=== PATIENT | female | born 1995 ===

== ENCOUNTER 2023-07-25 11:41 | Outpatient (CLI) | payer OTHER, SELFPAY ==
--- NOTE | ~2023-07-25 | US_ITS ---
EXAMINATION: US pelvic complete w TV DATE: 07/25/2023 12:09 INDICATION: Pelvic and perineal pain. Missing strings. Comparison:No prior studies for comparison. TECHNIQUE: Multiple transabdominal and endovaginal sonographic images of the pelvis performed. FINDINGS: The uterus measures 9.1 x 3.8 x 4.8 cm. IUD is present in the endometrium. The endometrial complex measures 6 mm. The right ovary measures 2.2 x 1.7 x 2.3 cm and the left ovary measures 3 x 2.5 x 2.6 cm. There is a 1.8 cm right ovarian cyst. There are small follicles in each ovary. Normal doppler signal in both ova sylvester. There is no free fluid in the pelvis. There are no abnormal masses seen on either side. IMPRESSION: 1. Right ovarian cyst measuring 1.8 cm. Reviewed, dictated and finalized at location B.
== END 2023-07-25 11:42 ==
LOC: MICIMG 11:42
PROVIDERS: PCP Student in an Organized Health Care Education/Training Program; Visit Provider Student in an Organized Health Care Education/Training Program
DX: N83.201 Unspecified ovarian cyst, right side (principal)
CPT/HCPCS: 76830; 76856

== ENCOUNTER 2024-01-02 11:59 | Outpatient (CLI) | payer OTHER, SELFPAY ==
--- NOTE | ~2024-01-02 | XR_ITS ---
XR abdomen/kub 1V Ordering provider: Ariane Cameron, History: . Left lower quadrant pain . Comparison: None. FINDINGS: BOWEL: Nonobstructive bowel gas pattern. ORGANOMEGALY: None. SIGNIFICANT PATHOLOGIC CALCIFICATIONS: None. OTHER: No free air is seen under the diaphragm. IUD is noted in the uterus. IMPRESSION: NO ACUTE ABDOMINAL FINDINGS. Reviewed, dictated and finalized at location A.
== END 2024-01-02 12:00 | disposition home or self-care (01) ==
LOC: MICIMG 12:03
PROVIDERS: PCP Student in an Organized Health Care Education/Training Program; Visit Provider Student in an Organized Health Care Education/Training Program
DX: R10.32 Left lower quadrant pain (principal)
CPT/HCPCS: 74018